=== PATIENT | female | born 1935 | race African-American/Black ===

== ENCOUNTER 2017-11-18 06:09 | Day surgery (SDC) | payer MEDICARE ==
--- NOTE | 2017-11-17 08:23 | Pre-Procedure Note/Attestation ---
Pre-Procedure Note/Attestation Complete Prior to Procedure Planned Procedure: right Procedure Narrative: phaco with IOL Indications for Procedure Pre-Operative Diagnosis: cataract Attestation I attest that I discussed the nature of the procedure; its benefits; risks and complications; and alternatives (and the risks and benefits of such alternatives ), prior to the procedure, with the patient (or the patient's legal key account representative). I attest that, if there was a reasonable possibility of needing a blood transfusion, the patient (or the patient's legal key account representative) was given the [facility] standardized written summary, pursuant to the [place] Blood Safety Act ([place] Health and Safety Code # 1645, as amended). I attest that I re-evaluated the patient just prior to the surgery and that there has been no change in the patient's H&P, except as documented below: TODD GARCIA November 17, 2017 08:23
--- NOTE | 2017-11-17 08:26 | Opthalmology H&P ---
Ophthalmology H&P H&P Chief Complaint: decreased vision in right eye HPI Vision Affects Ability to: read, focus/use eyes together, manage personal affairs HPI Narrative blurry vision Exam Visual Acuity: OD: 20/50 OS: 20/30 Tension: OD: 17 OS: 17 Eye Exam: normal OU: external exam, palpebral fissure-width, marginal reflex distance, levator function, corneas, anterior chambers; findings: lens - OD: cortical OS: cortical, fundus exam - increased cd Assessment/Plan Diagnosis: (1) Cortical age-related cataract, right eye Attestation Attestation The risks and benefits of the surgery as well as alternative procedures were explained to the patient in detail. TODD GARCIA November 17, 2017 08:26
[~2017-11-18] VITALS: Ht 172.7 cm; Wt 72.6 kg
[2017-11-18] VITALS (10 sets, daily range): BP systolic 125–171; BP diastolic 59–89
[2017-11-18] MEDS ORDERED: Pred Forte 1% Opth Susp 1ml ONE (07:00)
[2017-11-18] MEDS ORDERED: Maxitrol Opth Oint 3.5gm ONE (07:00)
[2017-11-18] MEDS ORDERED: Tetracaine 0.5% Opth 4ml Soln RIGHT EYE SCH (07:00)
[2017-11-18] MEDS ORDERED: Proparacaine 0.5% Opth Soln 15ml RIGHT EYE SCH (07:00)
[2017-11-18] MEDS ORDERED: Akten 3.5% 1ml Btl RIGHT EYE SCH (07:00)
[2017-11-18] MEDS ORDERED: Dexamethasone 4mg/ml vial ONE (07:00)
[2017-11-18] MEDS: Phenylephrine 10% Opth Soln 5ml RIGHT EYE SCH ×3 (08:12→08:39)
[2017-11-18] MEDS: Cyclopentolate 1% Opth Sol 2ml RIGHT EYE SCH ×3 (08:12→08:39)
[2017-11-18] MEDS: Tobramycin Op Soln 0.3% 5ml RIGHT EYE SCH ×3 (08:13→08:40)
[2017-11-18] MEDS: Tropicamide 1% Opth 15ml Soln RIGHT EYE SCH ×3 (08:13→08:39)
[2017-11-18] MEDS: Diclofenac Sod 0.1% Op Soln RIGHT EYE SCH ×3 (08:13→08:40)
[2017-11-18] MEDS ORDERED: SIMVASTATIN20 MG ORAL (08:23)
[2017-11-18] MEDS ORDERED: MAXZIDE 37.5 M1 EAC1 PO (08:26)
[2017-11-18] MEDS ORDERED: BENAZEPRIL HCL10 MG ORAL (08:27)
[2017-11-18] MEDS ORDERED: GLYBURIDE5 MG PO (08:29)
[2017-11-18] MEDS ORDERED: LR 1000ml 1,000 ML IVLG SCH (08:37)
--- NOTE | 2017-11-18 08:41 | Anethesia Preoperative Eval ---
Anesthesia Pre-op PMH/ROS General Date of Evaluation: November 18, 2017 Time of Evaluation: 08:39 Anesthesiologist: delia ASA Score: ASA 3 Mallampati Score Class I : Soft palate, uvula, fauces, pillars visible Class II: Soft palate, uvula, fauces visible Class III: Soft palate, base of uvula visible Class IV: Only hard plate visible Mallampati Classification: Class II Surgeon: shiloh Diagnosis: cataract Surgical Procedure: cataract extraction w/ iol implant Anesthesia History: none Family History: no anesthesia problems Allergies: Coded Allergies: CODEINE (Verified Allergy, Intermediate, RASH;itch, 11/18/17) Medications: see eMAR Past Medical History Cardiovascular: Reports: HTN Pulmonary: Reports: other - bronchitis Endocrine: Reports: DM Musculoskeletal/Integumentary: Reports: OA Anesthesia Pre-op Phys. Exam Physician Exam Last Vital Signs Date Time Temp Pulse Resp B/P (MAP) Pulse Ox O2 Delivery O2 Flow Rate FiO2 11/18/17 08:15 97.0 50 20 171/69 96 Room Air 97.0 Constitutional: NAD Neurologic: CN 2-12 intact Cardiovascular: RRR Respiratory: CTA Gastrointestinal: S/NT/ND Airway Exam Mallampati Score: Class II MO: limited Neck: short TMD: 2fb ROM: limited Anesthesia Pre-op A/P Risk Assessment & Plan Assessment: asa4 Plan: mac Status Change Before Surgery: No Pre-Antibiotics Drug: Lorna Robles MD November 18, 2017 08:41
[2017-11-18] MEDS ORDERED: Atropine Inj 1mg/10ml Syr IV PRN (08:45)
[2017-11-18] MEDS ORDERED: fentaNYL 100 mcg/2 mL IV PRN (08:45)
[2017-11-18] MEDS ORDERED: Midazolam 2mg/2ml Inj IVP PRN (08:45)
[2017-11-18] MEDS ORDERED: DiphenhydrAMINE 50mg/ml Inj IVP PRN (08:45)
[2017-11-18] MEDS ORDERED: FOSAMAX70 MG ORAL (08:46)
[2017-11-18] MEDS ORDERED: ASPIR 8181 MG ORAL (08:47)
[2017-11-18] MEDS ORDERED: LR 1000ml ONE (09:00)
[2017-11-18] MEDS ORDERED: Midazolam 2mg/2ml Inj ONE (09:00)
[2017-11-18] MEDS ORDERED: fentaNYL 100 mcg/2 mL IV ONE (09:00)
[2017-11-18] MEDS ORDERED: Sterile Water Irrig 1000ml IRRIG ONE (09:00)
[2017-11-18] MEDS ORDERED: NS Irrig 1000ml ONE (09:00)
--- NOTE | 2017-11-18 09:25 | Anethesia Preoperative Eval ---
Anesthesia Pre-op PMH/ROS General Date of Evaluation: November 18, 2017 Time of Evaluation: 08:56 Anesthesiologist: delia ASA Score: ASA 4 Mallampati Score Class I : Soft palate, uvula, fauces, pillars visible Class II: Soft palate, uvula, fauces visible Class III: Soft palate, base of uvula visible Class IV: Only hard plate visible Mallampati Classification: Class II Surgeon: shiloh Diagnosis: cortical age-related cataract right eye Surgical Procedure: cataract extraction w/ iol implant right eye Anesthesia History: none Family History: no anesthesia problems Allergies: Coded Allergies: CODEINE (Verified Allergy, Intermediate, RASH;itch, 11/18/17) Medications: see eMAR Past Medical History Cardiovascular: Reports: HTN, arrhythmia - sinus bradycardia, hypercholesterolemia Pulmonary: Reports: other Endocrine: Reports: DM Musculoskeletal/Integumentary: Reports: OA Anesthesia Pre-op Phys. Exam Physician Exam Last Vital Signs Date Time Temp Pulse Resp B/P (MAP) Pulse Ox O2 Delivery O2 Flow Rate FiO2 11/18/17 08:15 97.0 50 20 171/69 96 Room Air 97.0 Constitutional: NAD Neurologic: CN 2-12 intact Cardiovascular: other - bradycardia Respiratory: CTA Gastrointestinal: S/NT/ND Airway Exam Mallampati Score: Class II MO: limited Neck: short TMD: 2fb ROM: limited Anesthesia Pre-op A/P Risk Assessment & Plan Assessment: asa4 Plan: mac Status Change Before Surgery: No Pre-Antibiotics Drug: Lorna Robles MD November 18, 2017 09:25
--- NOTE | 2017-11-18 10:33 | Immediate Post-Op Evaluation ---
Immediate Post-Op Evalulation Immediate Post-Op Evalulation Procedure: cataract extraction w/iol implant right eye Date of Evaluation: November 18, 2017 Time of Evaluation: 09:58 IV Fluids: 150ml lr Blood Products: none Estimated Blood Loss: negligible Blood Pressure Systolic: 145 Blood Pressure Diastolic: 67 Pulse Rate: 52 Respiratory Rate: 18 O2 Sat by Pulse Oximetry: 99 Temperature (Fahrenheit): 98.1 Pain Score (1-10): 0 Nausea: No Vomiting: No Complications none Patient Status: awake, reacts, patent Hydration Status: adequate Drug: Lorna Robles MD November 18, 2017 10:33
--- NOTE | 2017-11-18 10:41 | 48 Hour Post Anesthesia Eval ---
Post Anesthesia Evaluation Procedure: cataract extraction w/iol implant right eye Date of Evaluation: November 18, 2017 Time of Evaluation: 10:00 Blood Pressure Systolic: 145 0: 67 Pulse Rate: 52 Respiratory Rate: 18 Temperature (Fahrenheit): 98.1 O2 Sat by Pulse Oximetry: 99 Airway: patent Nausea: No Vomiting: No Pain Intensity: 0 Hydration Status: adequate Cardiopulmonary Status: stable Mental Status/LOC: patient returned to baseline Post-Anesthesia Complications: none Follow-up care needed: N/A Lorna Bedoya MD November 18, 2017 10:41
[2017-11-18] MEDS ORDERED: EPINEPHrine 1mg/1ml Amp ONE (13:06)
[2017-11-18] MEDS ORDERED: BSS 500ml btl ONE (13:07)
[2017-11-18] MEDS ORDERED: Pilocarpine 2% Opth 15ml Soln ONE (13:07)
[2017-11-18] MEDS ORDERED: BSS 15ml BTL ONE (13:07)
[2017-11-18] MEDS ORDERED: Povidone-Iodine 5% opth solution ONE (13:08)
[2017-11-18] MEDS ORDERED: Sodium Hyaluronate 14 mg/ml 0.85ml ONE (13:08)
--- NOTE | 2017-11-19 11:35 | Brief Operative Note ---
Immediate Post Operative Note Operative Note Chief Complaint: blurry vision Pre-op Diagnosis: cataract, OD Procedure: phaco with IOL, OD Post-op Diagnosis: Pseudophakia Post-op Diagnosis: same as pre-op Findings: consistent w/pre-op dx studies Surgeon: Lesly Anesthesiologist: Audie Bourgeois Specimen: none Complications: none Condition: stable Fluids: LR Estimated Blood Loss: none Drains: none Implant(s) used?: Yes TODD GARCIA November 19, 2017 11:35
--- NOTE | 2017-11-19 11:36 | Operative Note - PDOC ---
Operative Note Operative Note Date of Operation/Procedure: November 18, 2017 Chief Complaint: blurry vision Pre-op Diagnosis: cataract, OD Procedure: phaco with IOL, OD Post-op Diagnosis: Pseudophakia Post-op Diagnosis: same as pre-op Operative Findings: consistent w/pre-op dx studies Surgeon: Lesly Anesthesiologist: Audie Bourgeois Specimen: none Complications: none Condition: stable Fluids: LR Estimated Blood Loss: none Drains: none Implant(s) used?: Yes Indications for Procedure cataract Description of Procedure This patient has been complaining visually significant cataract in the affected eye with the best corrected visual acuity under moderate glare conditions worse. The patient complains of difficulties with glare in performing activities of daily living and wants to manage personal affairs with comfort and accuracy and see well enough to move with safety at home and outdoors. The risks, benefits and alternatives of the procedure were discussed with the patient in the office prior to scheduling surgery. All questions from the patient were answered after the surgical procedure was explained in detail. The risks of the procedure as explained to the patient include, but are not limited to, pain, infection, bleeding, loss of vision, retinal detachment, need for further surgery, loss of lens nucleus, double vision, etc. Alternative procedures were discussed which include, to do nothing or seek a second opinion. Informed consent for this procedure was obtained from the patient. The patient was referred to a primary care physician for a cardiopulmonary clearance prior to surgery, after proper evaluation was done patient was properly scheduled for outpatient surgery. The patient was brought to the operating room where the anesthesiologist established I.V. lines and cardiac monitoring leads. Mild intravenous sedation was administered. The patient was then prepared with a 5% solution of povidone -iodine to the conjunctival fornix and lashes, and a 5% solution of povidone- iodine to the lids and periorbital skin. The patient was then draped in the usual sterile fashion. A lid speculum was then placed in the operative eye. A keratome blade was then used to create a biplanar incision into the anterior chamber. Viscoelastics was then instilled into the anterior chamber. A capsulorrhexis was then fashioned with an utrata forceps followed by hydrodissection and hydro delineation of the lens nucleus. Paracentesis incision was made at 3 o'clock with sharp blade. The phacoemulsification unit, after being properly adjusted and tested, was then used to emulsify the nucleus followed by aspiration and irrigation of residual cortical material. Healon was then instilled into the anterior chamber. The corneal wound was then enlarged to the size of the optic with the orion keratome blade. The intraocular lens was then inspected for right power and size and thought to be satisfactory. Then the lens was gently placed in the capsular bag. Positioning within the capsular bag was confirmed by direct visualization. Optic centration was accomplished with a Sinskey hook. Viscoelastics was removed from the anterior chamber using the irrigation and aspiration unit. The corneal wound was then tested for leaks and none were found. The lid speculum were then removed. Sponge and needle counts were correct. An eye patch and shield were placed over the operative eye. The patient was taken to the recovery room in stable condition. There were no complications. The patient tolerated the procedure well. The patient was then transferred to the ambulatory surgery unit in stable and satisfactory condition , was given detailed written instructions and asked to follow up in the office the next day. TODD GARCIA November 19, 2017 11:36
--- NOTE | 2017-12-08 14:00 | Pre-op HX & Phy Repo 2 SIG ---
DATE OF ADMISSION: 11/18/2017 PRESURGICAL INTERNAL MEDICINE HISTORY AND PHYSICAL DATE OF EVALUATION: 11/18/2017. REASON FOR EVALUATION: I was asked by Dr. Jose Antonio Grace, to see this 82-year-old female, who is going for elective surgery on the right eye. The patient has nuclear sclerotic cataract right eye. The patient was evaluated. Chart was reviewed. PAST MEDICAL HISTORY AND REVIEW OF SYSTEMS: Remarkable for hypertension, osteoporosis, and diabetes mellitus type 2. Denies respiratory problem. No GI bleeding. No hepatitis. Denies renal failure. No history of heart attack. No stroke. PAST SURGICAL HISTORY: Hysterectomy. FAMILY HISTORY: Father from complication of cancer. Mother, unknown. ALLERGIES: Codeine, developed itching. CURRENT MEDICATIONS: Thiazide, Fosamax 70 mg weekly, vitamin D and calcium supplement, benazepril, simvastatin, baby aspirin 81 mg, Celebrex, and glyburide 2.5 mg daily. HABITS: Denies history of smoke or alcohol habits. No street drugs. PHYSICAL EXAMINATION: GENERAL: The patient is alert, well-developed, well-nourished female, in her 80s. VITAL SIGNS: Blood pressure 171/69, temperature 97 degrees, pulse 50 per minute, and O2 saturation 96% on room air. SKIN: Dry. No rashes. No open wounds. LYMPHATICS: No lymph node enlargement. HEENT: Head, normocephalic. Ears, clear. Eyes, full description per Dr. Grace. Mouth, clear and moist. Wears dentures, up and low. NECK: No jugular vein distention. No palpable mass. Thyroid gland not enlarged. CHEST: Clear to auscultation and percussion. No rales or rhonchi. HEART: Regular. No ectopy. No murmur. ABDOMEN: Soft. No palpable mass. No rebound. Liver and spleen not enlarged. EXTREMITIES: No edema. No varicose vein. No calf tenderness. GENITOURINARY TRACT: Denies dysuria. No CVA tenderness. NERVOUS SYSTEM: No tremor. No nystagmus. No asymmetry. DIAGNOSTIC DATA: ECG, rhythm 63 per minute. LVH. The patient did not eat or drink from 7 p.m. yesterday. Fasting blood sugar today 127. IMPRESSION: 1. Cataract, right eye. 2. Hypertension, controlled. 3. Sinus bradycardia. 4. Osteoporosis. 5. Type 2 diabetes mellitus. 6. Left ventricular hypertrophy. PLAN: Cataract extraction, right eye with intraocular lens implant per Dr. Jose Antonio Grace. CONCLUSION: The patient has diabetes mellitus, controlled and history of hypertension, also controlled. The patient is asymptomatic. She has ECG changes and left ventricular hypertrophy. The patient is NPO. The patient's condition optimized for surgery. Thank you very much, Dr. Grace, for the privilege to participate in the presurgical care of this interesting patient. Nasreen Camacho M.D. DR: LISHA JOB#: [id number] CC:
== END 2017-11-18 11:00 | disposition home or self-care (01) ==
LOC: SUR 06:09
DX: H25.011 Cortical age-related cataract, right eye (principal); I10 Essential (primary) hypertension; E11.36 Type 2 diabetes mellitus with diabetic cataract; Z79.84 Long term (current) use of oral hypoglycemic drugs; Z79.82 Long term (current) use of aspirin; E78.00 Pure hypercholesterolemia, unspecified; I51.7 Cardiomegaly; M81.0 Age-related osteoporosis without current pathological fracture; E78.5 Hyperlipidemia, unspecified; Z80.9 Family history of malignant neoplasm, unspecified; Z88.6 Allergy status to analgesic agent
CPT/HCPCS: 66984; 82962; J0171; J1100; J2250; J3010; J3370; J7120; V2632; 94003; 94150